=== PATIENT | male | born 1990 | race Caucasian/White ===

== ENCOUNTER 2016-05-10 17:39 | Emergency (ER) | payer OTHER ==
--- NOTE | 2016-05-11 07:04 | ED NURSING NOTES ---
Clinical Report - Nurses [facility] [place] [address] 05/10/2016 17:41 Patient: CONCEPCIÓN DYER JR TRIAGE Triage time 1730. Acuity: LEVEL 2. Chief Complaint: SUICIDAL THOUGHTS. Alert. CHRISTIAN COMA SCORE: Christian Coma Scale: 15- eyes open spontaneously (4); best verbal response- oriented x 4 (5); best motor response- obeys commands (6). --18:05 Jennifer Romero R.N. 17:55 05/10/16. BP: 139/102. HR: 72. RR: 16. O2 saturation: 97% on room air. Pain level now: 0/10. --18:05 Jennifer Romero R.N. BREATHALYZER: Breathalyzer (0.365). --18:05 Jennifer Romero R.N. Weight: 77.1 kg estimated. Height/Length: 68 inches Estimated. BMI: 25.9. --17:57 Jennifer Romero R.N. Medications None. --17:56 Jennifer Romero R.N. Medication/allergy information source: the patient. --18:05 Jennifer Romero R.N. Allergies Penicillins. --17:56 Jennifer Romero R.N. History Arrived by EMS. Historian: EMS and patient. Primary physician (none). Onset: today. ( EMS reports the pt has had "family problems" and pt stated "I'm upset", police were called and pt was found in a car; had to be coaxed out of it, EMS reports he is and involuntary and the police are in route). SOCIAL HX: Heavy tobacco smoker- 1 pack per day. Occasional alcohol use. No drug use. SELF HARM ASSESSMENT: A self harm assessment was performed. The patient answered "yes" to the question "Have you recently felt down, depressed, or hopeless?", "Have you noticed less interest or pleasure in doing things?" and "Do you have thoughts of harming or killing yourself?" and "no" to the question "Are you here because you tried to hurt yourself?", "Have you recently had thoughts about harming or killing others?" and "Do you have any dangerous items in your possession?". Unable to assess the patient in regard to the question "Have you ever tried to hurt yourself before today?". The patient reports their behavior. Clothes and valuables were removed and placed in a safe. (states he has thought about how to hurt himself but won't talk about it, he is unsteady on his feet, cooperative with encouragement). FALL RISK ASSESSMENT: Fall risk assessment completed. No fall risk identified. FUNCTIONAL ASSESSMENT: Functional assessment performed: independent with the activities of daily living. LEARNING NEEDS ASSESSMENT: A learning needs assessment was performed. Factors affecting the patient's ability to learn include motivation. --18:05 Jennifer Romero R.N. ( belongings placed in Locker #5; Lock #3). --18:07 Jennifer Romero R.N. PROBLEMS: Contusion. Sprain. Conjunctivitis. Back Pain. --17:56 Jennifer Romero R.N. ADDITIONAL SURGERIES: Knee Surgery. --17:56 Jennifer Romero R.N. Assessment GENERAL / NEURO / PSYCH: The patient is awake and alert and is cooperative. RESPIRATORY: Respirations not labored. SKIN: Skin is warm and dry. --18:05 Jennifer Romero R.N. Interventions ID and allergy band on patient. To treatment room. --18:05 Jennifer Romero R.N. PHYSICAL ASSESSMENT 18:08 05/10/16. Ambulatory to room. Patient gowned. GENERAL / NEURO / PSYCH: (unsteady gait, hesitant but cooperative). He is awake and alert and has good eye contact. RESPIRATORY: Respirations not labored. SKIN: Skin is warm and dry. --18:08 Jennifer Romero R.N. NURSING PROGRESS NOTES 18:05/10/16. Patient gowned. Head of bed elevated. Suicide precautions initiated: a safety sweep of the room has been completed. Clothing / valuables removed and placed in the safe. Patient placed in direct sight of the nurse's station. ED Physician has been notified (Locker #5; Lock #3). --18:09 Jennifer Romero R.N. 18:16 05/10/16. Patient's personal items include, bagged and placed in Locker #5; Lock #3. Assisted patient with urinal (voided 1000 ml). --18:16 Jennifer Romero R.N. 18:17 05/10/16. :patient confirmed. Clean catch urine collected; sample sent to lab. Specimen labeled in the presence of the patient. --18:17 Jennifer Romero R.N. 18:19 05/10/16. The patient is resting quietly. RESPIRATORY: No respiratory distress. SKIN: Skin is warm and dry. --18:19 Jennifer Romero R.N. Checked patient name and birthdate: patient confirmed. Blood samples drawn from the right antecubital space with syringe and 23g butterfly by tech per protocol ; labeled in presence of the patient and sent to lab: rainbow set: cardiac enzymes (1st set). --18:25 John Cross 18:59 father here, gave him a wallet and the keys to pt's Jeep, father appears very concerned about his son's wellbeing, states he is willing to pick him up if he is discharged, father's phone number is (Concepción Dyer ). --19:14 Jennifer Romero R.N. The patient is calm and resting quietly. ( Pt updated on plan of care. Introduction with oncoming RN. NELSON.). --19:17 Lenka Young R.N. 19:16 05/10/16. BP: 128/90. HR: 90. RR: 18. O2 saturation: 98%. Temp: 98.7 F. Pain level now 0/10. --19:17 Lenka Young R.N. 20:07 ER physician at bedside. --20:08 McQuoid, Ashley, ER Tech1 The patient reports no complaints and he is resting quietly and sleeping. --22:37 Lenka Young R.N. ( Father called to check on his son, will come and see him tonight again.). --22:38 Lenka Young R.N. 23:40 Breathalyzer 0.207. --23:40 McRashawn, Ashley, ER Tech1 ( pt awake, alert, asking to go home. Father was suppose to be coming to visit, has not shown yet.). --23:43 Lenka Young R.N. 00:03 Father at bedside. --00:03 Ashley Brown, ER Tech1 ( Father here seeing his son.). --00:06 Lenka Young R.N. ( Father was here, spoke with son and also took son's cell phone home with him. Family updated on plan of care.). --00:58 Lenka Young R.N. The patient is resting quietly and sleeping. --03:05 Lenka Young R.N. The patient is resting quietly and sleeping. --04:01 Lenka Young R.N. ( BAL .051, awake, alert, pt offered services of mental health counselor to come and speak with him. Pt states he is not suicidal, states he said this while he was intoxicated and doesn't mean it. Wants to call his dad and go home.). --06:24 Lenka Young R.N. ( Dr. Montoya has spoke with the pt. Breakfast provided.). --07:01 Lenka Young R.N. 07:11 05/11/16. Care transferred and report received (from ADAMS Og). --07:11 Keily Bass R.N. 07:11 05/11/16. ( ERMD is discharging patient, phone given to pt to call his father to pick him up.). --07:11 Keily Bass R.N. DISPOSITION / DISCHARGE 07:37 05/11/16. Condition at departure: improved. --07:37 Keily Bass R.N. 07:36 05/11/16. BP: 145/94. HR: 77. RR: 18. O2 saturation: 95%. Temp: 98.3 F. Pain level now: 0/10. --07:37 Keily Bass R.N. No learning barriers present. Discharge instructions provided and reviewed with the parent. Reviewed warnings (to stay with responsible adult for 24 hours). Treatments reviewed ([facility] or own counselor). Reviewed referral to a referral line for followup. Verbalized understanding. Written instructions provided. The patient was discharged home and accompanied by parent. He left the Emergency Department ambulatory and via private vehicle. Parent driving. --07:42 Keily Bass R.N. Locked/Released at 05/22/2016 9:00 by Nahed Matthews R.N.
--- NOTE | 2016-05-11 07:04 | ED CLINICAL REPORT ---
Clinical Report - Physicians/Mid Levels [facility] [address] [place] [address] 05/10/2016 17:41 Patient: CONCEPCIÓN ALY JR Time Seen: 17:52. Arrived- By ambulance. Historian- patient and EMS personnel. CPT: ER phys charges level 5 (#[id number]). HISTORY OF PRESENT ILLNESS Chief Complaint: DEPRESSED and SUICIDAL THOUGHTS. This started today. The patient has experienced situational problems related to work, unemployment, a recent job loss and alcoholism. Recent heavy alcohol consumption (liquor). Last drink was just prior to arrival. He is under influence in ED. Has been depressed. Has had suicidal thoughts (He says that he would either wrapped his seat belt around his neck to try and choke himself or drive his vehicle at high speeds into a wall). Has highly lethal plan for suicide using motor vehicle. The symptoms are described as severe. No injury is present. REVIEW OF SYSTEMS No chills, fever, sweats, sore throat or calf pain. No chest pain, cough, difficulty breathing, pedal edema or palpitations. No abdominal pain, constipation, diarrhea, nausea or vomiting. No urinary problems, joint pain, neck pain, alteration in mental status or dizziness. No weakness. The patient has had depression and suicidal thoughts. No difficulty walking. PAST HISTORY No history of prior suicide attempt. Alcoholism. Problems: Contusion. Sprain. Conjunctivitis. Back Pain. Additional Surgeries: Knee Surgery. Medications: None. Allergies: Penicillins. SOCIAL HISTORY Heavy alcohol use. Last drink was just prior to arrival. Patient is a longstanding alcoholic. Under the influence in E.D. FAMILY HISTORY (his father is also an alcoholic). ADDITIONAL NOTES The nursing notes have been reviewed. PHYSICAL EXAM Vital Signs: 05/10/2016 17:55 BP: 139/102. HR: 72. RR: 16. O2 saturation: 97%. Pain level now: 0/10. Have been reviewed. Appearance: Alert. Is disheveled. He has ETOH on breath. (tearful). Eyes: Pupils equal, round and reactive to light. Neck: Normal inspection. Neck supple. CVS: Heart sounds normal. Respiratory: Breath sounds normal. Abdomen: Soft and nontender. Skin: Skin warm and dry. Normal skin color. Normal skin turgor. Extremities: Extremities exhibit normal ROM. No lower extremity edema. Psych / Neuro: The patient expresses suicidal thoughts. Cranial nerves normal (as tested). No motor deficit. No sensory deficit. LABS, X-RAYS, AND EKG Laboratory Tests: UA-Culture if indicated: (RIZWAN: 05/10/2016 17:30) ( [facility] 18:52) Final results Test Result Flag Units (Reference) URINE COLOR YELLOW URINE APPEARANCE CLEAR URINE GLUCOSE NEGATIVE (NEGATIVE) URINE BILIRUBIN NEGATIVE (NEGATIVE) URINE KETONE NEGATIVE (NEGATIVE) URINE SPECIFIC GRAVITY <= 1.005 L (1.010-1.030) URINE PH 7.0 (5.0-8.0) URINE PROTEIN NEGATIVE (NEGATIVE) URINE UROBILINOGEN 0.2 EU/dL (0.2-1.0) URINE NITRITE NEGATIVE (NEGATIVE) URINE BLOOD NEGATIVE (NEGATIVE) URINE LEUK ESTERASE NEGATIVE (NEGATIVE) URINE RBC NONE SEEN rbc/hpf (0-1) URINE WBC NONE SEEN wbc/hpf (0-1) URINE EPITHELIAL CELLS RARE EPI/hpf (0-5) URINE BACTERIA NONE SEEN (NONE SEEN) URINE COMMENT CULT NOT INDICATED URINE CULTURES ARE SET-UP BASED ON THE FOLLOWING CRITERIA:POSITIVE NITRITEPOSITIVE LEUKOCYTE ESTERASEGREATER THAN 10 WHITE BLOOD CELLSMODERATE (2+) OR GREATER BACTERIA CBC w Diff: (RIZWAN: 05/10/2016 18:20) ( [facility] 05/10[facility] 18:34) Final results Test Result Flag Units (Reference) WHITE BLOOD COUNT 11.0 K/uL (4.5-11.5) RED BLOOD COUNT 5.92 H M/uL (4.50-5.90) HEMOGLOBIN 17.2 gm/dL (13.5-17.5) HEMATOCRIT 52.3 % (41.0-53.0) MEAN CELL VOLUME 88 fL (80-100) MEAN CORPUSCULAR HGB 29 pg (26-34) MEAN CORPUSCULAR HGB CONC 33 g/dL (31-37) RED CELL DISTRIBUTION WIDTH 13.6 % (11.6-14.8) PLATELET COUNT 337 K/uL (150-400) NEUTROPHIL % 54.1 % (50-75) LYMPH % 36.1 % (25-40) MONO % 6.7 % (3-14) EOSINOPHIL % 2.3 % (0-4) BASOPHIL % 0.8 % (0-2) Urine Drug Screen: (RIZWAN: 05/10/2016 17:30) ( [facility] 05/10/2016 18:24) Final results Test Result Flag Units (Reference) AMPHETAMINE/METHAMPHETAMINE NEGATIVE (NEGATIVE) BARBITURATE NEGATIVE (NEGATIVE) BENZODIAZEPINE NEGATIVE (NEGATIVE) CANNABINOID NEGATIVE (NEGATIVE) COCAINE NEGATIVE (NEGATIVE) ECSTASY NEGATIVE (NEGATIVE) METHADONE NEGATIVE (NEGATIVE) OPIATE NEGATIVE (NEGATIVE) The urine drug screen is a qualitative screening test fordrug overdose and abuse. All screen results should beconsidered as presumptive.Drugs screened for are as follows:BenzodiazepinesCocaineAmphetamines/MetamphetaminesTHC (Tetrahydrocannabinol)OpiatesBarbituratesEcstasyMethadonePositive results are unconfirmed. For confirmation, notifythe lab for the specimen to be sent to the reference lab.All confirmations must be performed by a differentmethodology.The ingestion of natural herbal and plant productscontaining Ephedra/Ephedra metabolites can produce in urineone or more substances capable of cross reacting withamphetamine/methamphetamine immunoassays. These testsprovide a preliminary result only. A more specificalternative chemical method must be used to obtain aconfirmed analytical result. Salicylate Level: (RIZWAN: 05/10/2016 18:20) ( [facility] 05/10/2016 18:51) Final results Test Result Flag Units (Reference) SALICYLATE <2.8 L mg/dL (2.8-20) CMP: (RIZWAN: 05/10/2016 18:20) ( [facility] 05/10/2016 18:51) Final results Test Result Flag Units (Reference) GLUCOSE 102 mg/dL (70-110) BUN 9 mg/dL (7-18) CREATININE 0.9 mg/dL (0.6-1.3) Estimated GFR >60 mL/min Estimated GFR- >60 mL/min Note: Persistent reduction over 3 months in eGFR<60 mL/min/1.73 m2 defines CKD. Patients with eGFR values>=60 mL/min/1.73 m2 may also have CKD if evidence ofpersistent proteinuria. Additional information may be foundat www.kidney.org. SODIUM 143 mmol/L (136-145) POTASSIUM 3.7 mmol/L (3.5-5.1) CHLORIDE 106 mmol/L (98-107) CARBON DIOXIDE 28 mmol/L (21-32) CALCIUM 7.7 L mg/dL (8.5-10.1) TOTAL PROTEIN 6.7 g/dL (6.4-8.2) ALBUMIN 3.2 L g/dL (3.3-5.0) BILIRUBIN, TOTAL 0.4 mg/dL (0.0-1.0) ALKALINE PHOSPHATASE 93 U/L (46-116) AST (SGOT) 18 U/L (15-37) ALT (SGPT) 28 U/L (12-78) ACETAMINOPHEN < 2.0 L ug/mL (10-30) ETHYL ALCOHOL 388 H mg/dL (3-10) . PROGRESS AND PROCEDURES Course of Care: 21:01 05/10/16. the case was discussed with Dr. Montoya at change of shift reviewed the patient's history and examination findings. He will follow-up on the results of the patient's pending studies and will arrange for mental health evaluation when the patient is no longer intoxicated. - MW 07:00 05/11/16. Pt alcohol level now under legal. Discussed situation with patient. He indicates that he is not suicidal now and that the situation developed due to alcohol intoxication and recent stressors. He had a place to stay and feels he is able to cope with his recent problems. Has no hx of a prior suicidal attempt and did not make an attempt last night. Father is here to pick him up. Compass health information given. Patient/family counseled. Disposition: Discharged. Condition: stable and improved. CLINICAL IMPRESSION Suicidal ideation Uncomplicated alcohol intoxication with delirium. INSTRUCTIONS Stay with responsible adult family member (or other responsible adult). Warnings: Further evaluation is necessary. GENERAL WARNINGS: Return or contact your physician immediately if your condition worsens or changes unexpectedly, if not improving as expected, or if other problems arise. Follow-up: Follow up with your doctor in one week. Call for an appointment. Understanding of the discharge instructions verbalized by patient. Follow-up with: [facility], [facility], , , , , Follow up in one week. Call for an appointment. (Electronically signed by Domingo Montoya MD 05/12/2016 9:13)
--- NOTE | 2016-05-11 07:04 | ED ORDER SUMMARY ---
..... Patient: CONCEPCIÓN ALY JR OrderSheet [facility] VisitID: [id number] [address] [place] [address] 26y, M Registration Date/Time: 05/10/2016 ORDER SHEET Weight: 77.1 kg (estimated) Allergies: Penicillins GENERAL ORDERS: CBC w Diff Urgent (17:51 05/10/2016 Tyesha AGUILAR) (Ack 18:21 Arlin) (19:07 SBalde R.N.) CMP Urgent (17:51 05/10/2016 Tyesha AGUILAR) (Ack 18:21 Arlin) (19:07 SBalde R.N.) UA-Culture if indicated Urgent (17:51 05/10/2016 Tyesha AGUILAR) (18:05 Aretha R.N.) Urine Drug Screen Urgent (17:51 05/10/2016 Tyehsa AGUILAR) (18:05 Aretha R.N.) Ethyl Alcohol Urgent (17:51 05/10/2016 Tyesha AGUILAR) (Ack 18:21 Arlin) (19:07 SBalde R.N.) Suicide Precautions (17:51 05/10/2016 Tyesha AGUILAR) (18:05 Aretha R.N.) Acetaminophen Level Urgent (17:51 05/10/2016 Tyesha AGUILAR) (Ack 18:21 Arlin) (19:07 SBalde R.N.) Salicylate Level Urgent (17:51 05/10/2016 Tyesha AGUILAR) (Ack 18:21 Arlin) (19:07 SBalde R.N.) MEDICATION ORDERS: IV FLUIDS: ORDER SHEET NOTES: [Electronically signed by Domingo Montoya MD (09:13 05/12/2016)] [Electronically signed by Nahed Matthews R.N. (09:00 05/22/2016)] [Electronically locked/signed by Nahed Matthews R.N. (09:05/22/2016)]
--- NOTE | 2016-05-11 07:04 | ED CLINICAL REPORT ---
Clinical Report - Physicians/Mid Levels [facility] [address] [place] [address] 05/10/2016 17:41 Patient: CONCEPCIÓN ALY JR Time Seen: 17:52. Arrived- By ambulance. Historian- patient and EMS personnel. CPT: ER phys charges level 5 (#[id number]). HISTORY OF PRESENT ILLNESS Chief Complaint: DEPRESSED and SUICIDAL THOUGHTS. This started today. The patient has experienced situational problems related to work, unemployment, a recent job loss and alcoholism. Recent heavy alcohol consumption (liquor). Last drink was just prior to arrival. He is under influence in ED. Has been depressed. Has had suicidal thoughts (He says that he would either wrapped his seat belt around his neck to try and choke himself or drive his vehicle at high speeds into a wall). Has highly lethal plan for suicide using motor vehicle. The symptoms are described as severe. No injury is present. REVIEW OF SYSTEMS No chills, fever, sweats, sore throat or calf pain. No chest pain, cough, difficulty breathing, pedal edema or palpitations. No abdominal pain, constipation, diarrhea, nausea or vomiting. No urinary problems, joint pain, neck pain, alteration in mental status or dizziness. No weakness. The patient has had depression and suicidal thoughts. No difficulty walking. PAST HISTORY No history of prior suicide attempt. Alcoholism. Problems: Contusion. Sprain. Conjunctivitis. Back Pain. Additional Surgeries: Knee Surgery. Medications: None. Allergies: Penicillins. SOCIAL HISTORY Heavy alcohol use. Last drink was just prior to arrival. Patient is a longstanding alcoholic. Under the influence in E.D. FAMILY HISTORY (his father is also an alcoholic). ADDITIONAL NOTES The nursing notes have been reviewed. PHYSICAL EXAM Vital Signs: 05/10/2016 17:55 BP: 139/102. HR: 72. RR: 16. O2 saturation: 97%. Pain level now: 0/10. Have been reviewed. Appearance: Alert. Is disheveled. He has ETOH on breath. (tearful). Eyes: Pupils equal, round and reactive to light. Neck: Normal inspection. Neck supple. CVS: Heart sounds normal. Respiratory: Breath sounds normal. Abdomen: Soft and nontender. Skin: Skin warm and dry. Normal skin color. Normal skin turgor. Extremities: Extremities exhibit normal ROM. No lower extremity edema. Psych / Neuro: The patient expresses suicidal thoughts. Cranial nerves normal (as tested). No motor deficit. No sensory deficit. LABS, X-RAYS, AND EKG Laboratory Tests: UA-Culture if indicated: (RIZWAN: 05/10/2016 17:30) ( [facility] 05/10/2016 18:52) Final results Test Result Flag Units (Reference) URINE COLOR YELLOW URINE APPEARANCE CLEAR URINE GLUCOSE NEGATIVE (NEGATIVE) URINE BILIRUBIN NEGATIVE (NEGATIVE) URINE KETONE NEGATIVE (NEGATIVE) URINE SPECIFIC GRAVITY <= 1.005 L (1.010-1.030) URINE PH 7.0 (5.0-8.0) URINE PROTEIN NEGATIVE (NEGATIVE) URINE UROBILINOGEN 0.2 EU/dL (0.2-1.0) URINE NITRITE NEGATIVE (NEGATIVE) URINE BLOOD NEGATIVE (NEGATIVE) URINE LEUK ESTERASE NEGATIVE (NEGATIVE) URINE RBC NONE SEEN rbc/hpf (0-1) URINE WBC NONE SEEN wbc/hpf (0-1) URINE EPITHELIAL CELLS RARE EPI/hpf (0-5) URINE BACTERIA NONE SEEN (NONE SEEN) URINE COMMENT CULT NOT INDICATED URINE CULTURES ARE SET-UP BASED ON THE FOLLOWING CRITERIA:POSITIVE NITRITEPOSITIVE LEUKOCYTE ESTERASEGREATER THAN 10 WHITE BLOOD CELLSMODERATE (2+) OR GREATER BACTERIA CBC w Diff: (RIZWAN: 05/10/2016 18:20) ( [facility] [place] 05/10/2016 18:34) Final results Test Result Flag Units (Reference) WHITE BLOOD COUNT 11.0 K/uL (4.5-11.5) RED BLOOD COUNT 5.92 H M/uL (4.50-5.90) HEMOGLOBIN 17.2 gm/dL (13.5-17.5) HEMATOCRIT 52.3 % (41.0-53.0) MEAN CELL VOLUME 88 fL (80-100) MEAN CORPUSCULAR HGB 29 pg (26-34) MEAN CORPUSCULAR HGB CONC 33 g/dL (31-37) RED CELL DISTRIBUTION WIDTH 13.6 % (11.6-14.8) PLATELET COUNT 337 K/uL (150-400) NEUTROPHIL % 54.1 % (50-75) LYMPH % 36.1 % (25-40) MONO % 6.7 % (3-14) EOSINOPHIL % 2.3 % (0-4) BASOPHIL % 0.8 % (0-2) Urine Drug Screen: (RIZWAN: 05/10/2016 17:30) ( [facility] 05/10/2016 18:24) Final results Test Result Flag Units (Reference) AMPHETAMINE/METHAMPHETAMINE NEGATIVE (NEGATIVE) BARBITURATE NEGATIVE (NEGATIVE) BENZODIAZEPINE NEGATIVE (NEGATIVE) CANNABINOID NEGATIVE (NEGATIVE) COCAINE NEGATIVE (NEGATIVE) ECSTASY NEGATIVE (NEGATIVE) METHADONE NEGATIVE (NEGATIVE) OPIATE NEGATIVE (NEGATIVE) The urine drug screen is a qualitative screening test fordrug overdose and abuse. All screen results should beconsidered as presumptive.Drugs screened for are as follows:BenzodiazepinesCocaineAmphetamines/MetamphetaminesTHC (Tetrahydrocannabinol)OpiatesBarbituratesEcstasyMethadonePositive results are unconfirmed. For confirmation, notifythe lab for the specimen to be sent to the reference lab.All confirmations must be performed by a differentmethodology.The ingestion of natural herbal and plant productscontaining Ephedra/Ephedra metabolites can produce in urineone or more substances capable of cross reacting withamphetamine/methamphetamine immunoassays. These testsprovide a preliminary result only. A more specificalternative chemical method must be used to obtain aconfirmed analytical result. Salicylate Level: (RIZWAN: 05/10/2016 18:20) ( [facility] 05/10/2016 18:51) Final results Test Result Flag Units (Reference) SALICYLATE <2.8 L mg/dL (2.8-20) CMP: (RIZWAN: 05/10/2016 18:20) ( [facility] 05/10/2016 18:51) Final results Test Result Flag Units (Reference) GLUCOSE 102 mg/dL (70-110) BUN 9 mg/dL (7-18) CREATININE 0.9 mg/dL (0.6-1.3) Estimated GFR >60 mL/min Estimated GFR- >60 mL/min Note: Persistent reduction over 3 months in eGFR<60 mL/min/1.73 m2 defines CKD. Patients with eGFR values>=60 mL/min/1.73 m2 may also have CKD if evidence ofpersistent proteinuria. Additional information may be foundat www.kidney.org. SODIUM 143 mmol/L (136-145) POTASSIUM 3.7 mmol/L (3.5-5.1) CHLORIDE 106 mmol/L (98-107) CARBON DIOXIDE 28 mmol/L (21-32) CALCIUM 7.7 L mg/dL (8.5-10.1) TOTAL PROTEIN 6.7 g/dL (6.4-8.2) ALBUMIN 3.2 L g/dL (3.3-5.0) BILIRUBIN, TOTAL 0.4 mg/dL (0.0-1.0) ALKALINE PHOSPHATASE 93 U/L (46-116) AST (SGOT) 18 U/L (15-37) ALT (SGPT) 28 U/L (12-78) ACETAMINOPHEN < 2.0 L ug/mL (10-30) ETHYL ALCOHOL 388 H mg/dL (3-10) . PROGRESS AND PROCEDURES Course of Care: 21:01 05/10/16. the case was discussed with Dr. Montoya at change of shift reviewed the patient's history and examination findings. He will follow-up on the results of the patient's pending studies and will arrange for mental health evaluation when the patient is no longer intoxicated. - MW 07:00 05/11/16. Pt alcohol level now under legal. Discussed situation with patient. He indicates that he is not suicidal now and that the situation developed due to alcohol intoxication and recent stressors. He had a place to stay and feels he is able to cope with his recent problems. Has no hx of a prior suicidal attempt and did not make an attempt last night. Father is here to pick him up. Compass health information given. Patient/family counseled. Disposition: Discharged. Condition: stable and improved. CLINICAL IMPRESSION Suicidal ideation Uncomplicated alcohol intoxication with delirium. INSTRUCTIONS Stay with responsible adult family member (or other responsible adult). Warnings: Further evaluation is necessary. GENERAL WARNINGS: Return or contact your physician immediately if your condition worsens or changes unexpectedly, if not improving as expected, or if other problems arise. Follow-up: Follow up with your doctor in one week. Call for an appointment. Understanding of the discharge instructions verbalized by patient. Follow-up with: [facility] Automobile Spring Repairer, , , , , Follow up in one week. Call for an appointment. (Electronically signed by Domingo Montoya MD 05/12/2016 9:13)
--- NOTE | 2016-05-11 07:04 | ED ORDER SUMMARY ---
..... Patient: CONCEPCIÓN ALY JR OrderSheet [facility] VisitID: [id number] [address] [place] [address] 26y, M Registration Date/Time: 05/10/2016 ORDER SHEET Weight: 77.1 kg (estimated) Allergies: Penicillins GENERAL ORDERS: CBC w Diff Urgent (17:51 05/10/2016 Tyesha AGUILAR) (Ack 18:21 Arlin) (19:07 SBalde R.N.) CMP Urgent (17:51 05/10/2016 Tyesha AGUILAR) (Ack 18:21 Arlin) (19:07 SBalde R.N.) UA-Culture if indicated Urgent (17:51 05/10/2016 Tyesha AGUILAR) (18:05 Aretha R.N.) Urine Drug Screen Urgent (17:51 05/10/2016 Tyesha AGUILAR) (18:05 Aretha R.N.) Ethyl Alcohol Urgent (17:51 05/10/2016 Tyesha AGUILAR) (Ack 18:21 Arlin) (19:07 SBalde R.N.) Suicide Precautions (17:51 05/10/2016 Tyesha AGUILAR) (18:05 Aretha R.N.) Acetaminophen Level Urgent (17:51 05/10/2016 Tyesha AGUILAR) (Ack 18:21 Arlin) (19:07 SBalde R.N.) Salicylate Level Urgent (17:51 05/10/2016 Tyesha AGUILAR) (Ack 18:21 Arlin) (19:07 SBalde R.N.) MEDICATION ORDERS: IV FLUIDS: ORDER SHEET NOTES: [Electronically signed by Domingo Montoya MD (09:13 05/12/2016)] [Electronically signed by Nahed Matthews R.N. (09:00 05/22/2016)] [Electronically locked/signed by Nahed Matthews R.N. (09:05/22/2016)]
--- NOTE | 2016-05-22 09:01 | ED MED RECONCILIATION SUMMARY ---
Patient: CONCEPCIÓN ALY JR Medication Reconciliation Report [facility] VisitID: [id number] [address] [place] [address] 26y, M Registration Date/Time: 05/10/2016 Weight: 77.1 kg Height/Length: 68 in. BMI: 25.9 ALLERGIES: Penicillins The patient's Home Medications are listed below: NONE. The source(s) of the original Home Medication information: patient The following Medications were given to the patient in the Emergency Department: None. The following Medications were prescribed to the patient: None.
--- NOTE | 2016-05-22 09:01 | ED MAR SUMMARY ---
..... Medication Administration Record [facility] [address] [place], [place] [id number] Patient: CONCEPCIÓN ALY Visit ID: [id number] 26y, M Weight: 77.1 kg Height/Length: 68 in BMI: 25.9 ALLERGIES: Penicillins
--- NOTE | 2016-05-22 09:01 | ED DISCHARGE INSTRUCTIONS ---
Patient: CONCEPCIÓN ALY JR General Instructions [facility] VisitID: [id number] [address] [place] [address] 26y, M Registration Date/Time: 05/10/2016 Suicidal ideation Uncomplicated alcohol intoxication with delirium. INSTRUCTIONS Stay with responsible adult family member (or other responsible adult). Warnings: Further evaluation is necessary. GENERAL WARNINGS: Return or contact your physician immediately if your condition worsens or changes unexpectedly, if not improving as expected, or if other problems arise. Follow-up: Follow up with your doctor in one week. Call for an appointment. Understanding of the discharge instructions verbalized by patient. 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 Call for an appointment. ADDITIONAL INFORMATION Depression Depression is one of the most common mental health problems today. It is not just a state of unhappiness or sadness. It is a true disease. The cause seems to be related to a decrease in chemicals that transmit signals in the brain. Having a family history of depression, alcoholism or suicide increases the risk. Chronic illness, chronic pain, migraine headaches and high emotional stress also increase the risk. Depression can cause many different symptoms, such as: -- Loss of appetite -- Over-eating -- Not being able to sleep -- Sleeping too much -- Tiredness not related to physical exertion -- Restlessness or irritability -- Slowness of movement or speech -- Feeling depressed or withdrawn -- Loss of interest in things you once enjoyed -- Difficulty in concentrating, poor memory, have trouble making decisions -- Thoughts of harming or killing oneself, or thoughts that life is not worth living -- Low self-esteem The best treatment for depression is a combination of medicine and psychotherapy. Antidepressant medicines can reduce suffering and can improve the ability to function during the depressed period. Therapy can offer emotional support and help you understand emotional factors that may be causing the depression. Home Care: 1) Be kind to yourself. Make it a point to do things that you enjoy (gardening, walking in nature, going to a movie, etc.). Reward yourself for small successes. 2) Take care of your physical body. Eat a balanced diet (low in saturated fat and high in fruits and vegetables). Establish an exercise plan at least 3 times a week for 30 minutes. Even mild-moderate exercise (like brisk walking) can make you feel better. 3) Avoid alcohol, which can make depression worse. Follow-Up with your doctor as advised. It is important to keep in contact with a health care provider until your symptoms begin to improve. Get Prompt Medical Attention if any of the following occur: -- Feeling extreme depression, fear, anxiety, or anger toward yourself or others -- Feeling out of control -- Feeling that you may try to harm yourself or another -- Hearing voices that others do not hear -- Seeing things that others do not see -- Cant sleep or eat for 3 days in a row Alcohol Intoxication Alcohol intoxication occurs when you drink alcohol faster than your liver can remove it from your system. Alcohol intoxication affects your judgment and coordination. Very high blood alcohol levels can cause coma, very slow breathing and even . If you drink alcohol every day, this may gradually cause permanent damage to your liver, brain, heart, pancreas and other organs. Alcohol use during may cause permanent damage to the growing baby. Home Care: Do not drink any more alcohol. DO NOT DRIVE until all effects of the alcohol have worn off. Get lots of rest over the next few days. Drink plenty of water and other non-alcoholic liquids. Try to eat regular meals. If you have been drinking heavily on a daily basis, you may go through alcohol withdrawl. This is also called the shakes or DTs. The usual symptoms last 3 to 4 days and may include nervousness, shakiness, nausea, sweating or sleeplessness. During this time, it is best that you stay with family or friends who can help and support you. You can also admit yourself to a residential detox program. If your symptoms are severe, contact your doctor for medicines to help. Follow Up: If alcohol is causing a problem in your life, these and other organizations can help you: Alcoholics Anonymous offers support through a self-help fellowship. There are no dues or fees. See the Yellow Pages and call for time and place of meetings. www.aa.org Noemi offers support to families of alcohol users. 122.657.5031 www.al-anon.org National [place] On Alcoholism And Drug Dependence 536-178-5630 www.ncadd.org There are also inpatient or residential alcohol detox programs. Check the Internet or phonebook Yellow Pages under Drug Abuse & Treatment Centers. Get Prompt Medical Attention if any of the following occur: there) You have been given the following additional information: Depression Alcohol Intoxication Stay with responsible adult family member (or other responsible adult). (Electronically signed by Domingo Montoya MD 05/12/2016 9:13)
--- NOTE | 2016-05-22 09:01 | ED DISCHARGE INSTRUCTIONS ---
Patient: CONCEPCIÓN ALY JR General Instructions [facility] VisitID: [id number] [address] [place] [address] 26y, M Registration Date/Time: 05/10/2016 Suicidal ideation Uncomplicated alcohol intoxication with delirium. INSTRUCTIONS Stay with responsible adult family member (or other responsible adult). Warnings: Further evaluation is necessary. GENERAL WARNINGS: Return or contact your physician immediately if your condition worsens or changes unexpectedly, if not improving as expected, or if other problems arise. Follow-up: Follow up with your doctor in one week. Call for an appointment. Understanding of the discharge instructions verbalized by patient. 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 Call for an appointment. ADDITIONAL INFORMATION Depression Depression is one of the most common mental health problems today. It is not just a state of unhappiness or sadness. It is a true disease. The cause seems to be related to a decrease in chemicals that transmit signals in the brain. Having a family history of depression, alcoholism or suicide increases the risk. Chronic illness, chronic pain, migraine headaches and high emotional stress also increase the risk. Depression can cause many different symptoms, such as: -- Loss of appetite -- Over-eating -- Not being able to sleep -- Sleeping too much -- Tiredness not related to physical exertion -- Restlessness or irritability -- Slowness of movement or speech -- Feeling depressed or withdrawn -- Loss of interest in things you once enjoyed -- Difficulty in concentrating, poor memory, have trouble making decisions -- Thoughts of harming or killing oneself, or thoughts that life is not worth living -- Low self-esteem The best treatment for depression is a combination of medicine and psychotherapy. Antidepressant medicines can reduce suffering and can improve the ability to function during the depressed period. Therapy can offer emotional support and help you understand emotional factors that may be causing the depression. Home Care: 1) Be kind to yourself. Make it a point to do things that you enjoy (gardening, walking in nature, going to a movie, etc.). Reward yourself for small successes. 2) Take care of your physical body. Eat a balanced diet (low in saturated fat and high in fruits and vegetables). Establish an exercise plan at least 3 times a week for 30 minutes. Even mild-moderate exercise (like brisk walking) can make you feel better. 3) Avoid alcohol, which can make depression worse. Follow-Up with your doctor as advised. It is important to keep in contact with a health care provider until your symptoms begin to improve. Get Prompt Medical Attention if any of the following occur: -- Feeling extreme depression, fear, anxiety, or anger toward yourself or others -- Feeling out of control -- Feeling that you may try to harm yourself or another -- Hearing voices that others do not hear -- Seeing things that others do not see -- Cant sleep or eat for 3 days in a row Alcohol Intoxication Alcohol intoxication occurs when you drink alcohol faster than your liver can remove it from your system. Alcohol intoxication affects your judgment and coordination. Very high blood alcohol levels can cause coma, very slow breathing and even . If you drink alcohol every day, this may gradually cause permanent damage to your liver, brain, heart, pancreas and other organs. Alcohol use during may cause permanent damage to the growing baby. Home Care: Do not drink any more alcohol. DO NOT DRIVE until all effects of the alcohol have worn off. Get lots of rest over the next few days. Drink plenty of water and other non-alcoholic liquids. Try to eat regular meals. If you have been drinking heavily on a daily basis, you may go through alcohol withdrawl. This is also called the shakes or DTs. The usual symptoms last 3 to 4 days and may include nervousness, shakiness, nausea, sweating or sleeplessness. During this time, it is best that you stay with family or friends who can help and support you. You can also admit yourself to a residential detox program. If your symptoms are severe, contact your doctor for medicines to help. Follow Up: If alcohol is causing a problem in your life, these and other organizations can help you: Alcoholics Anonymous offers support through a self-help fellowship. There are no dues or fees. See the Yellow Pages and call for time and place of meetings. www.aa.org Noemi offers support to families of alcohol users. 366.594.5298 www.al-anon.org National [place] On Alcoholism And Drug Dependence 825-774-6208 www.ncadd.org There are also inpatient or residential alcohol detox programs. Check the Internet or phonebook Yellow Pages under Drug Abuse & Treatment Centers. Get Prompt Medical Attention if any of the following occur: there) You have been given the following additional information: Depression Alcohol Intoxication Stay with responsible adult family member (or other responsible adult). (Electronically signed by Domingo Montoya MD 05/12/2016 9:13)
--- NOTE | 2016-05-22 09:01 | ED MED RECONCILIATION SUMMARY ---
Patient: CONCEPCIÓN ALY JR Medication Reconciliation Report [facility] VisitID: [id number] [address] [place] [address] 26y, M Registration Date/Time: 05/10/2016 Weight: 77.1 kg Height/Length: 68 in. BMI: 25.9 ALLERGIES: Penicillins The patient's Home Medications are listed below: NONE. The source(s) of the original Home Medication information: patient The following Medications were given to the patient in the Emergency Department: None. The following Medications were prescribed to the patient: None.
--- NOTE | 2016-05-22 09:01 | ED MAR SUMMARY ---
..... Medication Administration Record [facility] [address] [place], [place] [id number] Patient: CONCEPCIÓN ALY Visit ID: [id number] 26y, M Weight: 77.1 kg Height/Length: 68 in BMI: 25.9 ALLERGIES: Penicillins
== END 2016-05-11 07:40 | disposition home or self-care (01) ==
LOC: ED SRH 17:39
DX: R45.851 Suicidal ideations (principal); F10.221 Alcohol dependence with intoxication delirium
CPT/HCPCS: 90004; 90100; 92010; 92760; 92761; 92762; 92763; 92764; 92765; 92766; 92767; 92780; 95059; 97000